=== PATIENT | male | born 1955 | race Caucasian/White ===

== ENCOUNTER 2018-10-11 08:56 | Day surgery (SDC) | payer OTHER ==
[~2018-10-11] VITALS: Ht 185.4 cm; Wt 79.4 kg
[~2018-10-11 08:56] MED LIST: ADULT ASPIRIN R81 MG PO; TADA10TA PO; ZINC15 PO
== END 2018-10-11 11:26 | disposition home or self-care (01) ==
LOC: ORSCSDS 08:56
PROVIDERS: Internal Medicine Gastroenterology
PROC: 0DBN8ZX Excision of Sigmoid Colon, Via Natural or Artificial Opening Endoscopic, Diagnostic (ICD-10-PCS; principal; 2018-10-11 10:15)
DX: Z12.11 Encounter for screening for malignant neoplasm of colon (principal); D12.5 Benign neoplasm of sigmoid colon; Z79.899 Other long term (current) drug therapy; Z79.82 Long term (current) use of aspirin
CPT/HCPCS: 88305; J2704; J7120

== ENCOUNTER → 2021-10-15 | Outpatient (CLI) | payer OTHER | END | disposition home or self-care (01) | LOC: PLD 07:54 → LAB SHORT 07:54 | DX: L82.1 Other seborrheic keratosis (principal) | CPT/HCPCS: 88305 ==

== ENCOUNTER 2024-05-17 09:10 | Day surgery (SDC) | payer OTHER ==
[2024-05-17] VITALS (17 sets, daily range): BP systolic 92–141; BP diastolic 56–108
[~2024-05-17] VITALS: Ht 185.4 cm; Wt 81.9 kg
[~2024-05-17 09:10] MED LIST changes: +NS 500 ML IV SCH
[2024-05-17] MEDS ORDERED: propofoL 40 ML IV ONE (11:25)
--- NOTE | 2024-05-17 11:37 | NUR ---
05/17/24 1137 Dixie Isbell CONFIRMED AND REVIEWED H&P, MEDCICATIONS, ALLERGIES, MEDICAL HISTORY, RESPIRATORY HISTORY, VITAL SIGNS, 3-LEAD EKG, CONSENTS, AND PHYSICIAN ORDERS. PATIENT CONFIRMS NPO STATUS AND AGREES WITH SCHEDULED PROCEDURE. MONITOR INTACT WITH CONTINUOUS PULSE OXIMETRY, CAPNOGRAPHY, 3-LEAD EKG, INTERMITTENT BP. SUPPLEMENTAL O2 TO BE CONFIRMED AND REVIEWED H&P, MEDCICATIONS, ALLERGIES, MEDICAL HISTORY, RESPIRATORY HISTORY, VITAL SIGNS, 3-LEAD EKG, CONSENTS, AND PHYSICIAN ORDERS. PATIENT CONFIRMS NPO STATUS AND AGREES WITH SCHEDULED PROCEDURE. MONITOR INTACT WITH CONTINUOUS PULSE OXIMETRY, CAPNOGRAPHY, 3-LEAD EKG, INTERMITTENT BP. SUPPLEMENTAL O2 TO BE TITRATED THROUGHOUT PROCEDURE TO MAINTAIN O2 SATURATION ABOVE 90%. PATIENT DETERMINED TO BE ASA APPROPRIATE FOR PROPOFOL SEDATION PRIOR TO START OF PROCEDURE BY .MALLAMPATI CLASS 2 AIRWAY: COMPLETE VISUALIZATION OF THE [facility]. .
--- NOTE | 2024-05-17 12:42 | NUR ---
Patient up to Ambulate independently. Gait steady. Discharge instructions reviewed with patient. Patient verbalizes understanding. Copy given to patient to take home [facility]. Patient States Post-Procedure ride home has been arranged. Discharged via wheelchair to private car for ride home. PT REPORTS READY TO GO HOME. REPORTS HAVING ELEVATED TEMP WHEN ARRIVING. TOLERATING PO.
== END 2024-05-17 12:42 | disposition home or self-care (01) ==
LOC: ORSCMMR 09:10 → ORD 10:30 → ORSCMMR 12:42
PROVIDERS: Internal Medicine Gastroenterology
PROC: 0DJD8ZZ Inspection of Lower Intestinal Tract, Via Natural or Artificial Opening Endoscopic (ICD-10-PCS; principal; 2024-05-17 10:30)
DX: Z12.11 Encounter for screening for malignant neoplasm of colon (principal); Z86.0101 Personal history of adenomatous and serrated colon polyps; I10 Essential (primary) hypertension; Z79.899 Other long term (current) drug therapy
CPT/HCPCS: J2704; J7040